=== PATIENT | female | born 2005 | race Hispanic/Latino ===

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

== ENCOUNTER 2024-03-23 10:09 | Inpatient (IN) | payer MEDICAID, OTHER, SELFPAY ==
[2024-03-22 13:06] LABS: Hematocrit 36.5 % (34.9-44.5); Hemoglobin 12.2 g/dL (12.0-15.5); Mean Corpuscular HGB CONC 33.4 g/dL (32.0-36.0); Mean Corpuscular Volume 74.8 fl (81.6-98.3); Platelet Count 315 10x3/uL (150-450); RBC Distribution Width 14.6 % (11.5-14.5); Red Blood Cell (RBC) Count 4.88 10x6/uL (3.90-5.03); White Blood Cell (WBC) Count 11.6 10x3/uL (3.5-10.5)
[2024-03-22 13:40] LABS: HBsAg Index 0.22 S/CO (0-0.99); Hep B Surf Ag Non-Reactive S/CO (NonReactive); Syphilis Antibody Nonreactive (Nonreactive); Syphilis Antibody Index 0.02 S/CO (<1.00 Non-Reactive)
[2024-03-23] MEDS ORDERED: Carboprost 250 MCG/ML AMP IM PRN (10:18)
[2024-03-23] MEDS ORDERED: hydrALAZINE 20 MG/ML VIAL SLOW IVP PRN ×2 (10:18→16:48)
[2024-03-23] MEDS ORDERED: Famotidine/PF 20 mg/2ml Vial SLOW IVP PRN (10:18)
[2024-03-23] MEDS ORDERED: Bicitra 30 ML UDCUP PO PRN (10:18)
[2024-03-23] MEDS ORDERED: Methylergonovine 0.2 MG/ML VIAL IM PRN (10:18)
[2024-03-23] MEDS ORDERED: Tranexamic Acid 1,000 MG/10 ML VIAL IVP PRN (10:18)
[2024-03-23] MEDS ORDERED: Ondansetron PF 4 MG/2 ML Vial IVP PRN ×2 (10:18→11:50)
[2024-03-23] MEDS ORDERED: Promethazine HCl 25 MG/ML VIAL IM PRN ×3 (10:18→11:50)
[2024-03-23] MEDS ORDERED: Misoprostol 200 MCG TAB PR PRN (10:18)
[2024-03-23] MEDS ORDERED: Diphenoxylate HCl/Atropine Tablet PO PRN (10:18)
[2024-03-23] MEDS ORDERED: Lactated Ringer's 1,000 ML IV SCH (10:30)
[2024-03-23] MEDS ORDERED: Oxytocin 30 units/NS 500 ML 500 ML IV SCH (10:30)
[2024-03-23 11:26] VITALS: BMI 42.0
[2024-03-23] MEDS: CEFAZOLIN 2 GM in Sodium Chloride 0.9% 100 ML IVPB SCH (11:28)
[2024-03-23] MEDS ORDERED: Naloxone HCl 0.4 mg/ml Vial IV PRN (11:50)
[2024-03-23] MEDS ORDERED: Moisturizing Cream (Eucerin) 113 GM JAR TOP PRN (11:50)
[2024-03-23] MEDS ORDERED: Naloxone HCl 0.4 mg/ml Vial IVP PRN ×2 (11:50)
[2024-03-23] MEDS ORDERED: diphenhydrAMINE 50 MG/ML VIAL IVP PRN (11:50)
[2024-03-23] MEDS ORDERED: HYDROmorphone 2 MG/ML VIAL SLOW IVP PRN (11:50)
[2024-03-23] MEDS ORDERED: Ondansetron HCl/PF 4 MG/2 ML Vial IVP PRN (11:50)
[2024-03-23] MEDS ORDERED: Communication Order-Pharmacy FS SCH (12:00)
[2024-03-23] MEDS ORDERED: Lanolin Ointment 7 GM TUBE TOP PRN (16:48)
[2024-03-23] MEDS ORDERED: diphenhydrAMINE 25 MG CAP PO PRN (16:48)
[2024-03-23] MEDS: Ketorolac Tromethamine 30 MG (1 mL) VIAL IVP PRN (17:07)
[2024-03-23] MEDS: Famotidine/PF 20 mg/2ml Vial ONE (17:20)
[2024-03-23] MEDS: ePHEDrine Sulfate 50 MG/10 ML VIAL ONE (17:20)
[2024-03-23] MEDS: Morphine PF 10 MG/10 ML VIAL ONE (17:20)
[2024-03-23] MEDS: Oxytocin 10 UNITS/ML VIAL ONE ×3 (17:21→17:33)
[2024-03-23] MEDS: PHENYLEPHRINE-NS 100 MCG/ML 10 ML SYRINGE ONE (17:21)
[2024-03-23] MEDS: Dexmedetomidine 200 MCG/2 ML VIAL ONE (17:36)
[2024-03-23] MEDS: Midazolam HCl 2 mg/2 ml Vial ONE (17:39)
[2024-03-23] MEDS: Simethicone Chewable 80 MG TAB PO SCH (17:42)
[2024-03-23] MEDS: Ondansetron PF 4 MG/2 ML Vial ONE (17:44)
[2024-03-23] MEDS: Acetaminophen 500 MG TAB PO SCH (18:30)
[2024-03-23] MEDS: Docusate 100 MG CAP PO SCH (23:16)
[2024-03-23] MEDS: Ferrous Sulfate 325 MG TAB PO SCH (23:17)
[2024-03-24 06:05] LABS: Hematocrit 32.3 % (34.9-44.5); Hemoglobin 10.5 g/dL (12.0-15.5); Mean Corpuscular HGB CONC 32.5 g/dL (32.0-36.0); Mean Corpuscular Hemoglobin 24.8 pg (27.0-33.0); Mean Corpuscular Volume 76.2 fl (81.6-98.3); Mean Platelet Volume 11.2 fl (7.4-10.4); Platelet Count 231 10x3/uL (150-450); RBC Distribution Width 14.5 % (11.5-14.5); Red Blood Cell (RBC) Count 4.24 10x6/uL (3.90-5.03); White Blood Cell (WBC) Count 10.8 10x3/uL (3.5-10.5)
[2024-03-24] MEDS: Boostrix 0.5 ML (Tdap) VIAL (>/=7 yrs of age) IM ONE (07:23)
[2024-03-24] MEDS: Ibuprofen 800 MG TAB PO SCH (10:04)
[2024-03-24] MEDS: Prenatal Vitamin 1 TAB PO SCH (10:05)
[2024-03-24] MEDS: HYDROcodone/Acetaminophen 5/325 mg Tablet PO PRN (15:15)
[2024-03-25 16:26] VITALS: TEMP 98.4
[2024-03-25 16:28] VITALS: BP 122/72
== END 2024-03-25 16:00 | disposition home or self-care (01) | DRG 788 ==
LOC: CSHLD 10:09 → CSHPED 16:17
PROVIDERS: ADMIT Family Medicine; ATTEND Family Medicine
PROC: 10D00Z1 Extraction of Products of Conception, Low, Open Approach (ICD-10-PCS; principal; 2024-03-23)
DX: O34.211 Maternal care for low transverse scar from previous cesarean delivery (principal); N73.9 Female pelvic inflammatory disease, unspecified; O99.284 Endocrine, nutritional and metabolic diseases complicating childbirth; E28.2 Polycystic ovarian syndrome; Z79.899 Other long term (current) drug therapy; Z37.0 Single live birth; Z3A.39 39 weeks gestation of pregnancy
CPT/HCPCS: 36415; 51702; 85027; 86780; 86850; 86900; 86901; 87340; J1885; J2250; J2274; J2405; J2590; J3490; S0028